=== PATIENT | female | born 1930 | race American Indian/Alaskan Native ===

== ENCOUNTER 2016-11-12 02:32 | Emergency (ER) | payer MEDICARE ==
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
[2016-11-12 03:39] LABS: HEMOGLOBIN 9.5 gm/dL (12.0-16.0); MEAN CELL VOLUME 84.4 fL (80.0-105.0); MEAN CORPUSCULAR HEMOGLOBIN 26.9 pg (25.0-35.0); MEAN CORPUSCULAR HGB CONC 31.9 g/dl (31.0-37.0); MEAN PLATELET VOLUME 10.2 fl (7.0-11.0); RBC 3.53 10^6/uL (3.5-6.1); RED CELL DISTRIBUTION WIDTH 18.7 % (11.5-14.5); WHITE BLOOD COUNT 6.8 10^3/ul (4.5-11.0)
[2016-11-12 03:53] LABS: ALB/GLOB RATIO 1.1 (1.1-1.8); ALBUMIN 4.4 g/dL (3.0-4.8); ALT/SGPT 20 U/L (7-56); AST/SGOT 34 U/L (15-39); BLOOD UREA NITROGEN 13 mg/dL (7-21); CALCIUM 9.2 mg/dL (8.4-10.5); GFR AFRICAN-AMERICAN > 60; GFR NON-AFRICAN AMERICAN > 60
[2016-11-12 04:04] LABS: TROPONIN I < 0.01 ng/mL
--- NOTE | 2016-11-12 04:15 | CT ---
EXAM: CT Head Without Intravenous Contrast CLINICAL HISTORY: 86 years old, female; Signs and symptoms; Altered mental status/memory loss; Additional info: AMS TECHNIQUE: Axial computed tomography images of the head/brain without intravenous contrast. This CT exam was performed using one or more of the following dose reduction techniques: automated exposure control, adjustment of the mA and/or kV according to patient size, and/or use of iterative reconstruction technique. COMPARISON: No relevant prior studies available. FINDINGS: Brain: No acute intracranial hemorrhage. Age-appropriate periventricular white matter disease. No edema. Ventricles: Age-appropriate ventriculomegaly. Bones: No acute displaced fracture. Sinuses: Unremarkable as visualized. No acute sinusitis. Mastoid air cells: Unremarkable as visualized. No mastoid effusion. IMPRESSION: No acute intracranial hemorrhage, or suspicious mass effect.
[2016-11-12 06:58] VITALS: RESP 16
--- NOTE | 2016-11-12 07:00 | RAD ---
HISTORY: ams COMPARISON: No prior. FINDINGS: LUNGS: No active pulmonary disease. PLEURA: No significant pleural effusion identified, no pneumothorax apparent. CARDIOVASCULAR: Normal. OSSEOUS STRUCTURES: . Nine and 5 mm probable loose bodies are present in the subcoracoid bursa are suspect. Bone islands can simulate this. Bilateral shoulder arthrosis present Thoracic spondylosis present VISUALIZED UPPER ABDOMEN: Normal. OTHER FINDINGS: The right hemidiaphragm is asymmetrically elevated. IMPRESSION: No active cardiopulmonary pathology Bilateral shoulder arthrosis. Right subcoracoid bursal bodies probable
--- NOTE | 2016-11-12 08:36 | ED PDOC ---
Physical Exam Vital Signs Reviewed: Yes Vital Signs Temp Pulse Resp BP Pulse Ox 11/12/16 06:58 92 H 16 126/72 97 11/12/16 04:58 88 16 128/76 97 11/12/16 02:54 98.0 F 119 H 20 140/97 H 98 Temperature: Afebrile Blood Pressure: Hypertensive Pulse: Tachycardic Respiratory Rate: Normal Appearance: Positive for: Well-Appearing, Non-Toxic, Comfortable Pain Distress: None Mental Status: Positive for: Alert and Oriented X 3 Medical Decision Making ED Course and Treatment: 11/12/16 07:30 Case signed out to me. Pending family arrival, reassessment and final disposition. - Lab Interpretations Lab Results: 11/12/16 03:29 11/12/16 03:29 Lab Results 11/12/16 03:29: WBC 6.8, RBC 3.53, Hgb 9.5 L, Hct 29.8 L, MCV 84.4, MCH 26.9, MCHC 31.9, RDW 18.7 H, Plt Count 312, MPV 10.2 11/12/16 03:29: Sodium 140, Potassium 3.7, Chloride 105, Carbon Dioxide 23, Anion Gap 16, BUN 13, Creatinine 0.6, Est GFR ( Amer) > 60, Est GFR (Non- Af Amer) > 60, Random Glucose 136 H, Calcium 9.2, Total Bilirubin 1.0, AST 34, ALT 20, Alkaline Phosphatase 62, Lactate Dehydrogenase 520, Total Creatine Kinase 186, Troponin I < 0.01, Total Protein 8.3, Albumin 4.4, Globulin 3.9, Albumin/Globulin Ratio 1.1 11/12/16 03:02: POC Glucose (mg/dL) 126 H I have reviewed the lab results: Yes - RAD Interpretation Radiology Orders: 11/12/16 03:18 HEAD W/O CONTRAST [CT] Stat 11/12/16 03:19 CHEST PORTABLE [RAD] Stat - Scribe Statement The provider has reviewed the documentation as recorded by the Cipriano Nava Provider Scribe Attestation: All medical record entries made by the Scribe were at my direction and personally dictated by me. I have reviewed the chart and agree that the record accurately reflects my personal performance of the history, physical exam, medical decision making, and the department course for this patient. I have also personally directed, reviewed, and agree with the discharge instructions and disposition. Disposition/Present on Arrival - Present on Arrival Any Indicators Present on Arrival: No History of DVT/PE: No History of Uncontrolled Diabetes: No Urinary Catheter: No History of Decub. Ulcer: No History Surgical Site Infection Following: None - Disposition Have Diagnosis and Disposition been Completed?: Yes Diagnosis: Dementia Disposition: HOME/ ROUTINE Disposition Time: 09:00 Condition: GOOD Discharge Instructions (ExitCare): Dementia (ED) Additional Instructions: Thank you for letting us take care of you today. The emergency medical care you received today was directed at your acute symptoms. If you were prescribed any medication, please fill it and take as directed. It may take several days for your symptoms to resolve. Return to the Emergency Department if your symptoms worsen, do not improve, or if you have any other problems. Please contact your doctor or call one of the physicians/clinics you have been referred to that are listed on the Patient Visit Information form that is included in your discharge packet. Bring any paperwork you were given at discharge with you along with any medications you are taking to your follow up visit. Our treatment cannot replace ongoing medical care by a primary care provider (PCP) outside of the emergency department. Thank you for allowing the [facility] team to be part of your care today. Follow up with your doctor in 2-3 days for re-evaluation. Do not drive until you are seen by your primary doctor.
[2016-11-12 09:20] VITALS: O2SAT 99
[2016-11-12 11:09] VITALS: BP 129/77; PULSE 88; TEMP 98.2
--- NOTE | 2016-11-12 16:40 | CARD ---
APPROVED REPORT EKG Measurement Heart [id number] <Conclusion> Sinus rhythm with marked sinus arrhythmia Otherwise normal ECG
== END 2016-11-12 11:05 | disposition home or self-care (01) ==
LOC: ED 02:32
DX: F03.90 Unspecified dementia, unspecified severity, without behavioral disturbance, psychotic disturbance, mood disturbance, and anxiety (principal)